=== PATIENT | female | born 2000 | race Caucasian/White ===

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

== ENCOUNTER 2021-06-26 13:03 | Emergency (ER) | payer MEDICAID, SELFPAY ==
[2021-06-26 13:12] VITALS: BP 141/95; PULSE 110; RESP 18; TEMP 37; O2SAT 100
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
[2021-06-26] MEDS: Doxycycline Hyclate 100 MG CAP PO (13:58)
[2021-06-26] MEDS: Doxycycline Hyclate 100 MG, 2 CAPS/BTL PO (13:58)
--- NOTE | 2021-06-26 18:08 | NUR.NOTE ---
Nursing Note: referral to cm for pcp
[2021-06-27 12:26] LABS: COVID-19 RT-PCR UVMMC Result Negative (Negative)
== END 2021-06-26 14:04 | disposition home or self-care (01) ==
LOC: ER 13:37
PROVIDERS: Emergency Provider Registered Nurse Emergency
DX: J01.90 Acute sinusitis, unspecified (principal); J02.9 Acute pharyngitis, unspecified; H92.02 Otalgia, left ear
CPT/HCPCS: 87880; 99283; U0003; 87081

== ENCOUNTER 2021-12-17 17:51 | Emergency (ER) | payer MEDICAID, SELFPAY ==
[2021-12-17 18:03] VITALS: BP 155/92; PULSE 82; RESP 17; TEMP 37.1; O2SAT 100
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
[2021-12-17] MEDS: Clindamycin 150 MG CAP 450 MG PO (19:15)
== END 2021-12-17 19:21 | disposition home or self-care (01) ==
PROVIDERS: Emergency Provider Emergency Medicine
DX: K04.7 Periapical abscess without sinus (principal); F17.290 Nicotine dependence, other tobacco product, uncomplicated
CPT/HCPCS: 99283

== ENCOUNTER 2023-06-06 18:31 | Emergency (ER) | payer MEDICAID, SELFPAY ==
[2023-06-06 18:45] VITALS: BP 151/84; PULSE 127; RESP 18; TEMP 37.3; O2SAT 97
[2023-06-06 19:40] VITALS: BP 151/97; PULSE 110; RESP 18; TEMP 37.3; O2SAT 98
[2023-06-06 19:41] VITALS: O2SAT 98
[2023-06-06 19:42] VITALS: BP 151/97; PULSE 109
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
[2023-06-06] MEDS: Sulfameth/Trimeth DS TAB 1 TAB PO (20:04)
[2023-06-06] MEDS: Sulfameth/Trimeth DS, 2 TABS/BTL 1 TAB PO (20:04)
[2023-06-06 20:05] VITALS: BP 151/97; PULSE 109; RESP 18; TEMP 37.3; O2SAT 98
== END 2023-06-06 20:06 | disposition home or self-care (01) ==
PROVIDERS: Emergency Provider Nurse Practitioner Family
DX: L02.211 Cutaneous abscess of abdominal wall (principal); I10 Essential (primary) hypertension
CPT/HCPCS: 99283

== ENCOUNTER 2023-07-13 14:27 | Outpatient (REF) | payer MEDICAID, SELFPAY ==
--- NOTE | 2023-07-13 13:40 | PAPFT_PTH ---
PATIENT: Elsa Saldivar LOC: [facility] U#:[id number] AGE/SX: 23/F ROOM: RE07/13/[address]: Lucila Bellamy DO : 2000 BED: DIS: 07/13/2023 SPEC #: [id number] RECD: 07/13/23 17:52 STATUS: VINITA REQ #: [id number] LAZARO: 07/13/23 13:[address]: Lucila Bellamy DEPT: [facility] Cytology RECD BY: Vira Ferrari ENTERED: 07/13/23 17:52 SP TYPE: PAPFT OTHR DR: Unknown,Unknown Tissues: 1 - CX/ENDOCX FOR PAP SMEARS Procedures: PAP THIN PREP/UVM Screening HPV DNA PROBE Comments: [id number] (HPV 16 & 18/45) (CHLAMYDIA/GC)
[2023-07-14 15:25] LABS: Chlamydia Result Negative (Negative); GC Result Negative (Negative)
== END 2023-07-13 14:28 | disposition home or self-care (01) ==
LOC: LBN 14:27
PROVIDERS: Visit Provider Obstetrics & Gynecology
DX: Z12.4 Encounter for screening for malignant neoplasm of cervix (principal); Z11.51 Encounter for screening for human papillomavirus (HPV); R87.613 High grade squamous intraepithelial lesion on cytologic smear of cervix (HGSIL); R87.810 Cervical high risk human papillomavirus (HPV) DNA test positive; Z11.3 Encounter for screening for infections with a predominantly sexual mode of transmission
CPT/HCPCS: 87491; 87591; 88142; 87624

== ENCOUNTER → 2023-07-15 00:54 | Outpatient (CLI) | payer MEDICAID, SELFPAY ==
--- NOTE | 2023-07-15 07:15 | DI.US_ITS ---
Exam(s) US PELVIS TRANSVAGINAL EXAM: US PELVIS TRANSVAGINAL CLINICAL HISTORY: dysfunctional uterine bleeding,n93.8. TECHNIQUE: Transabdominal and transvaginal pelvic ultrasound was performed using standard protocol. COMPARISON: No exams were available for comparison FINDINGS: UTERUS: Position: Anteverted. Size: 6.4 long by 3.8 AP by 3.9 transverse cm Endometrium: 0.9 cm. Normal for patient's menstrual status. Myometrium: Unremarkable. Cervix: Unremarkable. OVARIES: Right: 3.4 x 2.6 x 2.8 cm Cyst or mass: No suspicious cystic or solid masses. Left: 3.6 x 2.6 x 2.2 cm Cyst or mass: No suspicious cystic or solid masses. DOPPLER: Color: Symmetric and uniform flow to both ovaries. CUL-DE-SAC: Free fluid: None. Other: None. IMPRESSION: 1. Normal-appearing uterus with endometrial stripe within normal limits. 2. Unremarkable bilateral ovaries. DATA REPOSITORY:
== END ==
PROVIDERS: Visit Provider Obstetrics & Gynecology
DX: N93.8 Other specified abnormal uterine and vaginal bleeding (principal)
CPT/HCPCS: 76830; 76856

== ENCOUNTER 2023-07-20 03:13 | Outpatient (CLI) | payer MEDICAID, SELFPAY ==
[2023-07-20 11:30] LABS: ALT 41 U/L (14-59); AST 20 U/L (15-37); Albumin 3.5 g/dL (3.4-5.0); Alkaline Phosphatase 146 U/L (46-116); Anion Gap 9.5 mmol/L (3-11); BUN 7 mg/dL (7-18); Bilirubin, Total 0.3 mg/dL (0.2-1.0); CO2 27.5 mmol/L (21.0-32.0); CREATININE 0.8 mg/dL (0.55-1.02); Calcium 9.4 mg/dL (8.5-10.1); Chloride 103 mmol/L (98-107); Estimated GFR 106.77 (mL/min/1.73m2); Glucose 87 mg/dL (74-106); Potassium 3.8 mmol/L (3.5-5.1); Sodium 140 mmol/L (136-145); TSH (W/Ref FT4) 1.38 uIU/mL (0.36-3.74); Total Protein 7.6 g/dL (6.4-8.2)
[2023-07-20 18:11] LABS: FSH 2.6 mIU/mL (See Note); LH 7.6 mIU/mL (See Note); Prolactin 16.1 ng/mL (See Note)
== END 2023-07-20 03:14 | disposition home or self-care (01) ==
LOC: LBO 03:13
PROVIDERS: Visit Provider Obstetrics & Gynecology
DX: N93.8 Other specified abnormal uterine and vaginal bleeding (principal)
CPT/HCPCS: 36415; 80053; 83001; 83002; 84146; 84443

== ENCOUNTER 2023-08-17 05:26 | Outpatient (CLI) | payer MEDICAID, SELFPAY ==
--- NOTE | 2023-08-17 10:43 | TELEFU_ITS ---
Date of service: 08/17/23 Time of Service: 09:00 Nutrition Note NOTE: 23yo female referred for nutrition counseling regarding pediatric BMI >95th percentile with hx of PCOS and struggles with wt mgt. Wt on 07/25 was 155.582kg gagan was 8+kg wt gain x 9 months and results in a BMI of 55.3 at a height of 66''. In july she started metformin BID. Lives alone currently and considers herself very competent in cooking knowledge. Has good food access. 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 Est. Energy Needs: 3031 (REE x 1.3) - set goal for reduced kcals at ~2500kcals, 62-187g protein 10-30%kcals, 3031mL fluid. Suggested ~30% of kcals from carbs(187g) for lower carb intake - reviewed carb counting strategies for meal planning. Highlighted beneficial impact of exercise in addition to baseling of activity with emphasis on strength training. Current not a breakfast eater and will wait until ~2:30 to have first meal. We reviewed getting protein needs met along with fiber and having high plant based intake requires planning and more frequent meals that would benefit her m ore towards the early part of the day - especially with carbs as this is the part of the day she is more active consistently. Elsa will work at menu planning a few breakfast and lunch menus that she can cycle between that help meet the above recommendations. She took my card to contact me if she has immediate needs or questions. Follow up phone call planned for end of August - I will call her then Time Spent in Nutritional Counseling and Treatment: 60 minutes
== END 2023-08-17 05:27 | disposition home or self-care (01) ==
LOC: DS 05:26
PROVIDERS: Visit Provider Dietitian, Registered
DX: E66.8 Other obesity (principal); E28.2 Polycystic ovarian syndrome; Z68.43 Body mass index [BMI] 50.0-59.9, adult; Z71.3 Dietary counseling and surveillance
CPT/HCPCS: 00123; 97802

== ENCOUNTER 2024-11-03 13:44 | Outpatient (REF) | payer SELFPAY ==
--- NOTE | 2024-11-03 13:30 | PAPFT_PTH ---
PATIENT: Elsa Saldivar LOC: [facility] U#:[id number] AGE/SX: 24/F ROOM: RE11/03/[address]: Lucila Bellamy DO : 2000 BED: DIS: 11/03/2024 SPEC #: [id number] RECD: 11/03/24 17:50 STATUS: VINITA REQ #: [id number] LAZARO: 11/03/24 13:[address]: Lucila Bellamy DEPT: [facility] Cytology RECD BY: Vira Ferrari ENTERED: 11/03/24 17:50 SP TYPE: PAPFT OTHR DR: Unknown,Unknown Tissues: 1 - CX/ENDOCX FOR PAP SMEARS Procedures: PAP THIN PREP/UVM Screening HPV DNA PROBE Comments: [id number] (HPV 16 & 18/45) (CHLAMYDIA/GC)
[2024-11-06 13:02] LABS: GC Result Negative (Negative)
[2024-11-06 14:44] LABS: Chlamydia Result Positive (Negative)
== END 2024-11-03 13:45 | disposition home or self-care (01) ==
LOC: LBN 13:44
PROVIDERS: Visit Provider Obstetrics & Gynecology
DX: Z12.4 Encounter for screening for malignant neoplasm of cervix (principal)
CPT/HCPCS: 87491; 87591; 88142; 87624

== ENCOUNTER 2024-12-12 10:42 | Outpatient (REF) | payer OTHER, SELFPAY ==
--- NOTE | 2024-12-12 10:25 | ENDO_PTH ---
PATIENT: Elsa Saldivar LOC: [facility] U#:[id number] AGE/SX: 24/F ROOM: RE12/12/[address]: Lucila Bellamy DO : 2000 BED: DIS: 12/12/2024 SPEC #: [id number] RECD: 12/12/24 13:05 STATUS: VINITA REQ #: [id number] LAZARO: 12/12/24 10:[address]: Lucila Bellamy DEPT: Surgical Specimen RECD BY: Vira Ferrari ENTERED: 12/12/24 13:06 SP TYPE: Endo OTHR DR: Unknown,Unknown Tissues: 1 - ENDOCERVICAL BX/CURRETTE Procedures: GROSS AND MICRO LEVEL 4 Comments: [id number]
== END 2024-12-12 10:43 | disposition home or self-care (01) ==
LOC: LBN 10:42
PROVIDERS: Visit Provider Obstetrics & Gynecology
DX: R87.611 Atypical squamous cells cannot exclude high grade squamous intraepithelial lesion on cytologic smear of cervix (ASC-H) (principal)
CPT/HCPCS: 88305